=== PATIENT | female | born 1970 | race Hispanic/Latino ===

== ENCOUNTER 2021-04-13 09:01 | Emergency (ER) | payer BC, SELFPAY ==
[2021-04-13 09:46] LABS: Absolute Lymphocytes (CBC) 1.2 K/uL (0.7-4.9); Basophils % 0.2 % (0-1.3); Hematocrit 43.3 % (36.0-45.0); Lymphocytes % 7.4 % (15.3-44.8); MPV 8.5 fL (7.6-11.3); RBC Red Blood Cell Count 4.75 M/uL (3.86-4.86)
--- NOTE | 2021-04-13 10:14 | RAD REPORT ---
EXAM DESCRIPTION: RAD - Chest Single View - 04/13/2021 9:56 am CLINICAL HISTORY: DYSPNEA Chest pain. COMPARISON: Chest Pa And Lat (2 Views) dated 11/21/2018 FINDINGS: Portable technique limits examination quality. Mild to moderate bilateral interstitial lung opacities are noted which may represent pulmonary edema or infection/ pneumonia. The heart is upper limit of normal in size. No displaced fractures.
[2021-04-13 10:43] LABS: Protime INR 1.11
[2021-04-13 11:25] LABS: ALT/SGPT 132 U/L (12-78); AST/SGOT 79 U/L (15-37); Albumin 3.2 g/dL (3.4-5.0); Alkaline Phosphatase 125 U/L (45-117); BUN Blood Urea Nitrogen 9 mg/dL (7-18); Bicarbonate 25 mmol/L (21-32); Bilirubin Direct 0.2 mg/dL (0-0.2); Bilirubin Total 0.4 mg/dL (0.2-1.0); C-Reactive Protein 5.98 mg/L (<3.00); Ferritin 206.3 ng/mL (8-388); Glucose Level 106 mg/dL (74-106); Lipase 242 U/L (73-393); Potassium 3.7 mmol/L (3.5-5.1); Protein, Total 8.1 g/dL (6.4-8.2); Sodium Level 140 mmol/L (136-145); Troponin (Emerg Dept Use Only) < 0.02 ng/mL (0.0-0.045)
--- NOTE | 2021-04-13 12:02 | RAD REPORT ---
EXAM DESCRIPTION: CT - Chest For Pe Angio - 04/13/2021 11:43 am CLINICAL HISTORY: Chest pain. DYSPNEA COMPARISON: Chest Single View dated 04/13/2021 TECHNIQUE: CT angiogram of the pulmonary arteries was performed with MIP. All CT scans are performed using dose optimization technique as appropriate and may include automated exposure control or mA/KV adjustment according to patient size. FINDINGS: No evidence of pulmonary thromboembolism. No acute aortic finding demonstrated. Mild interstitial lung opacities are seen along the periphery of both lungs are in greatest in the lo wer lobes. No significant pericardial or pleural fluid. No concerning bony finding. IMPRESSION: No evidence of pulmonary thromboembolism. Interstitial lung opacities are seen along the periphery of both lungs and greatest in the lower lobe s. This pattern is most compatible with underlying COVID-19 infection.
--- NOTE | 2021-04-13 12:17 | EDPHYS ---
Physician Documentation [facility] Name: Billie Turcios Age: 50 yrs Sex: Female : 1970 Arrival Date: 04/13/2021 Time: 09:03 Bed 13 Private MD: ED Physician Jonathan Mcbride HPI: 04/13 10:20 This 50 yrs old Female presents to ER via Ambulatory with complaints of kb Shortness Of Breath. 10:20 The patient has shortness of breath at rest. Onset: The symptoms/episode began/occurred kb 1 week(s) ago. Duration: The symptoms are continuous. The patient's shortness of breath is aggravated by exertion. Associated signs and symptoms: Pertinent positives: chest pain, non-productive cough. Severity of symptoms: At their worst the symptoms were moderate in the emergency department the symptoms are unchanged. The patient has not experienced similar symptoms in the past. The patient has been recently seen by a physician:. Pt reports she was diagnosed with covid a week ago, completed a course of zithromax and steroids, but still having shortness of breath. 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 - Social history:: Smoking status: Patient denies any tobacco usage or history of. ROS: 10:19 Abdomen/GI: Negative for abdominal pain, nausea, vomiting, diarrhea, and constipation. kb 10:19 Constitutional: Positive for malaise. 10:19 Cardiovascular: Positive for chest pain, Negative for edema, orthopnea, palpitations, paroxysmal nocturnal dyspnea. 10:19 Respiratory: Positive for cough, shortness of breath. 10:19 All other systems are negative. Exam: 09:57 ECG was reviewed by the Attending Physician. kb 10:19 Constitutional: This is a well developed, well nourished patient who is awake, alert, kb and in no acute distress. Head/Face: Normocephalic, atraumatic. ENT: Moist Mucous membranes Cardiovascular: Regular rate and rhythm with a normal S1 and S2. No gallops, murmurs, or rubs. No pulse deficits. Abdomen/GI: Soft, non-tender. No distention Skin: Warm, dry with normal turgor. Normal color. MS/ Extremity: Pulses equal, no cyanosis. Neurovascular intact. Full, normal range of motion. Neuro: Awake and alert, GCS 15, oriented to person, place, time, and situation. Moves all extremities. Normal gait. Psych: Awake, alert, with orientation to person, place and time. Behavior, mood, and affect are within normal limits. 10:19 Respiratory: the patient does not display signs of respiratory distress, Respirations: normal, Breath sounds: wheezing: inspiratory that is mild, is heard in the left upper lobe. Vital Signs: 09:13 BP 126 / 82; Pulse 89; Resp 18; Temp 98.4; Pulse Ox 98% on R/A; Weight 61.69 kg; Height iw 5 ft. 0 in. (152.40 cm); 12:00 BP 128 / 86; Pulse 90; Resp 20; Pulse Ox 96% on R/A; tr6 09:13 Body Mass Index 26.56 (61.69 kg, 152.40 cm) iw MDM: 09:15 Patient medically screened. kb 10:20 Data reviewed: vital signs, nurses notes. Data interpreted: Pulse oximetry: on room air kb is 98 %. Interpretation: normal. 12:16 Counseling: I had a detailed discussion with the patient and/or guardian regarding: the kb historical points, exam findings, and any diagnostic results supporting the discharge/admit diagnosis, lab results, radiology results, the need for outpatient follow up, a family practitioner, to return to the emergency department if symptoms worsen or persist or if there are any questions or concerns that arise at home. 04/13 09:24 Order name: Troponin (emerg Dept Use Only) kb 04/13 09:24 Order name: BMP kb 04/13 09:24 Order name: C-Reactive Protein; Complete Time: 11:29 kb 04/13 09:24 Order name: CBC with Diff; Complete Time: 09:56 kb 04/13 09:24 Order name: D-Dimer; Complete Time: 10:55 kb 04/13 09:24 Order name: Ferritin; Complete Time: 11:29 kb 04/13 09:24 Order name: LFT's; Complete Time: 11:29 kb 04/13 09:24 Order name: Lipase; Complete Time: 11:29 kb 04/13 09:24 Order name: PT-INR; Complete Time: 10:55 kb 04/13 09:24 Order name: Ptt, Activated; Complete Time: 10:55 kb 04/13 09:24 Order name: CXR XRAY; Complete Time: 10:16 kb 04/13 09:24 Order name: Troponin (Emerg Dept Use Only); Complete Time: 11:29 EDMS 04/13 09:24 Order name: Basic Metabolic Panel; Complete Time: 11:29 EDMS 04/13 09:24 Order name: EKG; Complete Time: 09:25 kb 04/13 09:24 Order name: Cardiac monitoring; Complete Time: 11:04 kb 04/13 09:24 Order name: Droplet/Contact Precautions; Complete Time: 11:04 kb 04/13 09:24 Order name: EKG - Nurse/Tech; Complete Time: 11:06 kb 04/13 09:24 Order name: IV Start; Complete Time: 11:06 kb 04/13 09:24 Order name: Labs collected and sent; Complete Time: 11:06 kb 04/13 09:24 Order name: O2 Per Protocol; Complete Time: 11:07 kb 04/13 09:24 Order name: O2 Sat Monitoring; Complete Time: 11:07 kb 04/13 09:53 Order name: Labs - recollect needed: recollect cbc, c7; Complete Time: 11:03 bd 04/13 10:53 Order name: CT Chest For PE Angio; Complete Time: 12:03 kb EC:57 Rate is 75 beats/min. Rhythm is regular. QRS [place] is Normal. [place] interval is normal at kb 126 msec. QRS interval is normal at 62 msec. QT interval is normal at 384 msec. Administered Medications: No medications were administered Disposition: 04/14 07:08 Co-signature as Attending Physician, Jonathan Mcbride MD I agree with the assessment and dudley plan of care. Disposition: 04/13/21 12:16 Discharged to Home. Impression: Coronavirus infection, unspecified. - Condition is Stable. - Discharge Instructions: Viral Respiratory Infection, [id number], COVID-19. - Prescriptions for Albuterol Sulfate 90 mcg/actuation - inhale 1-2 puff by INHALATION route every 4-6 hours; 1 Inhaler. - Medication Reconciliation Form, Thank You Letter, Antibiotic Education, Prescription Opioid Use form. - Follow up: Emergency Department; When: As needed; Reason: Worsening of condition. Follow up: Private Physician; When: 2 - 3 days; Reason: Recheck today's complaints, Continuance of care, Re-evaluation by your physician. Signatures: Dispatcher [employer] [facility] Mackenzie Graves, COIN WRAPPING MACHINE OPERATOR-C COIN WRAPPING MACHINE OPERATOR-Ckb Danii Melendez Corey, MD MD cha Williams, Irene, RN RN iw Ramnanan, Tiffany, RN RN tr6 Corrections: (The following items were deleted from the chart) 04/13 09:57 09:16 Chest Pa And Lat (2 Views)+RAD.RAD.BRZ ordered. [facility] 12:33 12:16 04/13/2021 12:16 Discharged to Home. Impression: Coronavirus infection, tr6 unspecified. Condition is Stable. Forms are Medication Reconciliation Form, Thank You Letter, Antibiotic Education, Prescription Opioid Use. Follow up: Emergency Department; When: As needed; Reason: Worsening of condition. Follow up: Private Physician; When: 2 - 3 days; Reason: Recheck today's complaints, Continuance of care, Re-evaluation by your physician. kb
--- NOTE | 2021-04-13 12:17 | ER ---
Nurse's Notes [facility] Name: Billie Turcios Age: 50 yrs Sex: Female : 1970 Arrival Date: 04/13/2021 Time: 09:03 Bed 13 Private MD: Diagnosis: Coronavirus infection, unspecified Presentation: 04/13 09:13 Chief complaint: Patient states: SOB since 6-7, COVID+, finished Zpack and prednisone. Coronavirus screen: Client presents with at least one sign or symptom that may indicate coronavirus-19. Client reports previous positive COVID test result. Ebola Screen: Patient negative for fever greater than or equal to 101.5 degrees Fahrenheit, and additional compatible Ebola Virus Disease symptoms Patient denies exposure to infectious person. Patient denies travel to an Ebola-affected area in the 21 days before illness onset. No symptoms or risks identified at this time. Initial Sepsis Screen: Does the patient meet any 2 criteria? No. Patient's initial sepsis screen is negative. Does the patient have a suspected source of infection? No. Patient's initial sepsis screen is negative. Risk Assessment: Do you want to hurt yourself or someone else? Patient reports no desire to harm self or others. Onset of symptoms was April 06, 2021. 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 - Social history:: Smoking status: Patient denies any tobacco usage or history of. Screenin:31 Abuse screen: Denies threats or abuse. Denies injuries from another. Nutritional tr6 screening: No deficits noted. Tuberculosis screening: No symptoms or risk factors identified. Fall Risk None identified. Assessment: 09:40 General: Appears uncomfortable, Behavior is calm, cooperative, appropriate for age. tr6 Pain: Complains of pain in cp with inspiration. Neuro: No deficits noted. Cardiovascular: Rhythm is regular. Respiratory: Airway is patent Respiratory effort is even, labored, Breath sounds are diminished. GI: No deficits noted. : No deficits noted. EENT: No deficits noted. Derm: No deficits noted. Musculoskeletal: No deficits noted. Vital Signs: 09:13 BP 126 / 82; Pulse 89; Resp 18; Temp 98.4; Pulse Ox 98% on R/A; Weight 61.69 kg; Height iw 5 ft. 0 in. (152.40 cm); 12:00 BP 128 / 86; Pulse 90; Resp 20; Pulse Ox 96% on R/A; tr6 09:13 Body Mass Index 26.56 (61.69 kg, 152.40 cm) ED Course: 09:03 Patient arrived in ED. ds1 09:12 Mackenzie Graves FNP-C is [facility]. kb 09:12 Jonathan Mcbride MD is Attending Physician. kb 09:14 Triage completed. iw 09:15 Arm band placed on. iw 09:25 Swapna Leija, MATTHEW is Primary Nurse. tr6 09:42 Inserted saline lock: 20 gauge in right antecubital area, using aseptic technique. mt Blood collected. 09:56 CXR XRAY In Process Unspecified. EDMS 11:43 CT Chest For PE Angio In Process Unspecified. EDMS 12:31 Patient has correct armband on for positive identification. Bed in low position. Call tr6 light in reach. Side rails up X 1. 12:31 IV discontinued, intact, bleeding controlled, No redness/swelling at site. Pressure tr6 dressing applied. Administered Medications: No medications were administered Outcome: 12:16 Discharge ordered by . kb 12:31 Discharged to home ambulatory. tr6 12:31 Condition: stable 12:31 Discharge instructions given to patient, Instructed on discharge instructions, follow up and referral plans. medication usage, safety practices, Demonstrated understanding of instructions, follow-up care, medications, Prescriptions given X 1. 12:33 Patient left the ED. tr6 Signatures: Dispatcher [employer] EDMS Mackenzie Graves FNP-C FNP-Ckb Sanford, Demi ds1 Lakshmi Galvez, RN MATTHEW Raymond [facility] Swapna Leija RN RN tr6
[2021-04-13 12:37] VITALS: TEMP 98.4
[2021-04-13 12:39] VITALS: BP 128/86; O2SAT 96
== END 2021-04-13 12:33 | disposition home or self-care (01) ==
LOC: ER 09:01
DX: U07.1 COVID-19 (principal); Z88.0 Allergy status to penicillin
CPT/HCPCS: 36415; 71045; 71275; 80048; 80076; 82728; 83690; 84484; 85025; 85379; 85610; 85730; 86140; 93005; 99284; Q9967

== ENCOUNTER 2021-06-23 02:08 | Observation (INO) | payer SELFPAY ==
--- OUTSIDE RECORDS SUMMARY | 2021-06-23 02:11 | XMS REPORT | Continuity of Care Document ---
:1970 Author Organization [facility] t Address [address] [place] [address] Dr. Barker [address] [place] [id number] Care Team Providers Name Role Phone Unavailable Unavailable Unavailable Payers Payer Name Policy Type Policy Number Effective Date Expiration Date S ource Problems This patient has no known problems. Allergies, Adverse Reactions, Alerts This patient has no known allergies or adverse reactions. Medications This patient has no known medications. Procedures This patient has no known procedures. Results This patient has no known results.
[2021-06-23 03:02] LABS: Basophils % 0.4 % (0-1.3); Hematocrit 39.2 % (36.0-45.0); Lymphocytes % 33.3 % (15.3-44.8); MPV 7.8 fL (7.6-11.3); RBC Red Blood Cell Count 4.27 M/uL (3.86-4.86)
[2021-06-23 04:06] LABS: Albumin 3.8 g/dL (3.4-5.0); Bilirubin Direct 0.1 mg/dL (0-0.2); Bilirubin Total 0.3 mg/dL (0.2-1.0); Potassium 3.8 mmol/L (3.5-5.1); Protein, Total 8.2 g/dL (6.4-8.2)
--- NOTE | 2021-06-23 04:42 | ER ---
Nurse's Notes [facility] Name: Billie Turcios Age: 50 yrs Sex: Female : 1970 Arrival Date: 06/23/2021 Time: 02:09 Bed 17 Private MD: Diagnosis: Acute cholecystitis Presentation: 06/23 02:37 Chief complaint: Patient states: epigastric pain that radiates into into back started em at 9 pm, hx of gallstones, denies N/V or fever. Coronavirus screen: Client denies travel out of the [place] in the last 14 days. Ebola Screen: Patient negative for fever greater than or equal to 101.5 degrees Fahrenheit, and additional compatible Ebola Virus Disease symptoms Patient denies exposure to infectious person. Patient denies travel to an Ebola-affected area in the 21 days before illness onset. No symptoms or risks identified at this time. Initial Sepsis Screen: Does the patient meet any 2 criteria? No. Patient's initial sepsis screen is negative. Does the patient have a suspected source of infection? No. Patient's initial sepsis screen is negative. Risk Assessment: Do you want to hurt yourself or someone else? Patient reports no desire to harm self or others. Onset of symptoms was June 23, 2021. 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 - Social history:: Smoking status: Patient denies any tobacco usage or history of. Screenin:15 Abuse screen: Denies threats or abuse. Denies injuries from another. Nutritional hb screening: No deficits noted. Tuberculosis screening: No symptoms or risk factors identified. Fall Risk None identified. Assessment: 04:11 General: Appears uncomfortable, Behavior is calm, cooperative. Pain: Complains of pain ch4 in abdomen Pain currently is 8 out of 10 on a pain scale. Pain began 2100. Neuro: No deficits noted. Cardiovascular: No deficits noted. Respiratory: No deficits noted. GI: Reports upper abdominal pain, Patient currently denies diarrhea, nausea, vomiting. : No deficits noted. EENT: No deficits noted. Derm: No deficits noted. Musculoskeletal: No deficits noted. 07:43 Reassessment: Patient appears in no apparent distress at this time. Patient and/or hb family updated on plan of care and expected duration. Pain level reassessed. Patient is alert, oriented x 3, equal unlabored respirations, skin warm/dry/pink. Vital Signs: 02:37 BP 168 / 96; Pulse 81; Resp 18; Temp 98.7; Pulse Ox 99% on R/A; Weight 61.69 kg; Height em 5 ft. 0 in. (152.40 cm); Pain 7/10; 04:12 BP 159 / 86; Pulse 70; Resp 17; Temp 98.6; Pulse Ox 100% on R/A; ch4 07:43 BP 159 / 86; Pulse 65; Resp 15; Pulse Ox 98% on R/A; hb 02:37 Body Mass Index 26.56 (61.69 kg, 152.40 cm) em ED Course: 02:09 Patient arrived in ED. wm 02:40 Triage completed. em 02:40 Arm band placed on. em 02:50 Inserted saline lock: 22 gauge in right antecubital area, using aseptic technique. ds4 Blood collected. 03:47 US Abdomen Limited In Process Unspecified. EDMS 03:56 Jose Antonio Vasquez MD is Attending Physician. tw4 04:05 Yasmeen Mejia, MATTHEW is Primary Nurse. ch4 04:41 Steve Moore MD is Hospitalizing Provider. tw4 07:15 No provider procedures requiring assistance completed. hb 08:30 Patient admitted, IV remains in place. hb 09:14 Patient has correct armband on for positive identification. hb Administered Medications: 05:29 Drug: Zofran (Ondansetron) 4 mg Route: IVP; Site: right antecubital; ch4 05:29 Drug: morphine 4 mg Route: IVP; Site: right antecubital; ch4 Outcome: 04:42 Decision to Hospitalize by Provider. tw4 08:30 Admitted to ER Hold. Please see [facility] for further documentation. hb 08:30 Condition: stable 08:30 Instructed on the need for admit, Demonstrated understanding of instructions. 13:44 Patient left the ED. hb Signatures: Dispatcher [employer] Terry Platt, RN RN Saul Perez ds4 Kristen Bland RN RN Jose Antonio Vasquez MD MD tw4 Hilaria Jurado Yasmeen Mejia RN RN ch4 Corrections: (The following items were deleted from the chart) 05:45 05:37 CORONAVIRUS+ drawn and sent. ch4 EDMS
[2021-06-23] MEDS ORDERED: ONDANSETRON 4 MG/2 ML VIAL ONE (05:06)
[2021-06-23] MEDS ORDERED: MORPHINE 4 MG/ML SYR ONE (05:06)
--- NOTE | 2021-06-23 07:37 | EKG ---
Test Date: 2021-06-23 Test Time: 02:45:21 Canine Deputy: DAISY MEASUREMENT RESULTS: Intervals: Rate: 88 PA: 156 QRSD: 76 QT: 366 QTc: 442 [place]: P: 66 PA: 156 QRS: 25 T: 38 INTERPRETIVE STATEMENTS: Normal sinus rhythm Nonspecific T wave abnormality Abnormal ECG Compared to ECG 04/13/2021 09:46:44 T-wave abnormality now present ST (T wave) deviation no longer present Electronically Signed On 06-23-21 07:36:09 CDT by Adalberto Blake
--- NOTE | 2021-06-23 08:18 | RAD REPORT ---
EXAM DESCRIPTION: US - Abdomen Exam Limited - 06/23/2021 3:47 am CLINICAL HISTORY: Abdominal pain. COMPARISON: 2016 FINDINGS: Stone within the gallbladder neck. Small amount of fluid surrounds the gallbladder. Border line gallbladder wall thickening The biliary tree is normal caliber. IMPRESSION: Cholelithiasis. Small amount of fluid surrounds the gallbladder. This may indicate cholecystitis and should be correl ated clinically
[2021-06-23 09:28] VITALS: BMI 26.4
--- NOTE | 2021-06-23 13:44 | EDPHYS ---
Physician Documentation [facility] Name: Billie Turcios Age: 50 yrs Sex: Female : 1970 Arrival Date: 06/23/2021 Time: 02:09 Bed 17 Private MD: ED Physician Jose Antonio Vasquez HPI: 06/23 04:42 This 50 yrs old Female presents to ER via Ambulatory with complaints of tw4 Epigastric Pain. 04:42 The patient presents with abdominal pain in the epigastric area. Onset: The tw4 symptoms/episode began/occurred today. The symptoms radiate to right back. Associated signs and symptoms: Pertinent positives: nausea and vomiting. The symptoms are described as sharp. Modifying factors: The symptoms are alleviated by nothing, the symptoms are aggravated by nothing. The patient has not experienced similar symptoms in the past. 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 - Social history:: Smoking status: Patient denies any tobacco usage or history of. ROS: 04:42 Constitutional: Negative for fever, chills, and weight loss, Cardiovascular: Negative tw4 for chest pain, palpitations, and edema, Respiratory: Negative for shortness of breath, cough, wheezing, and pleuritic chest pain, Back: Negative for injury and pain, MS/Extremity: Negative for injury and deformity, Skin: Negative for injury, rash, and discoloration, Neuro: Negative for headache, weakness, numbness, tingling, and seizure. 04:42 Abdomen/GI: Positive for abdominal pain, nausea and vomiting, nausea, vomiting, and diarrhea, vomiting. Exam: 04:42 Constitutional: This is a well developed, well nourished patient who is awake, alert, tw4 and in no acute distress. Head/Face: Normocephalic, atraumatic. Chest/axilla: Normal chest wall appearance and motion. Nontender with no deformity. No lesions are appreciated. Cardiovascular: Regular rate and rhythm with a normal S1 and S2. No gallops, murmurs, or rubs. Normal PMI, no JVD. No pulse deficits. Respiratory: Lungs have equal breath sounds bilaterally, clear to auscultation and percussion. No rales, rhonchi or wheezes noted. No increased work of breathing, no retractions or nasal flaring. Back: No spinal tenderness. No costovertebral tenderness. Full range of motion. MS/ Extremity: Pulses equal, no cyanosis. Neurovascular intact. Full, normal range of motion. Neuro: Awake and alert, GCS 15, oriented to person, place, time, and situation. Cranial nerves II-XII grossly intact. Motor strength 5/5 in all extremities. Sensory grossly intact. Cerebellar exam normal. Normal gait. 04:42 Abdomen/GI: Inspection: abdomen appears normal, Bowel sounds: normal, Palpation: moderate abdominal tenderness, in the right upper quadrant. Vital Signs: 02:37 BP 168 / 96; Pulse 81; Resp 18; Temp 98.7; Pulse Ox 99% on R/A; Weight 61.69 kg; Height em 5 ft. 0 in. (152.40 cm); Pain 7/10; 04:12 BP 159 / 86; Pulse 70; Resp 17; Temp 98.6; Pulse Ox 100% on R/A; ch4 07:43 BP 159 / 86; Pulse 65; Resp 15; Pulse Ox 98% on R/A; hb 02:37 Body Mass Index 26.56 (61.69 kg, 152.40 cm) em MDM: 04:42 Patient medically screened. tw4 06/23 02:41 Order name: Basic Metabolic Panel em 06/23 02:41 Order name: CBC with Diff em 06/23 02:41 Order name: Hepatic Function em 06/23 02:41 Order name: Lipase em 06/23 06:40 Order name: SARS-COV-2 RT PCR EDDC 06/23 02:41 Order name: IV Saline Lock; Complete Time: 03:08 em 06/23 02:41 Order name: Labs collected and sent; Complete Time: 03:08 em 06/23 02:41 Order name: EKG - Nurse/Tech; Complete Time: 02:44 em 06/23 02:42 Order name: US Abdomen Limited em 06/23 06:56 Order name: EKG Electrocardiogram EDDC EC:42 Rate is 88 beats/min. Rhythm is regular. QRS [place] is Normal. CT interval is normal. QRS tw4 interval is normal. QT interval is normal. No Q waves. T waves are Normal. Clinical impression: NSR w/ Non-specific ST/T Changes. Interpreted by me. Reviewed by me. Administered Medications: 05:29 Drug: Zofran (Ondansetron) 4 mg Route: IVP; Site: right antecubital; ch4 05:29 Drug: morphine 4 mg Route: IVP; Site: right antecubital; ch4 Disposition Summary: 06/23/21 04:42 Hospitalization Ordered Hospitalization Status: Inpatient Admission tw4 Provider: Steve Moore tw4 Condition: Stable tw4 Problem: new tw4 Symptoms: have improved tw4 Bed/Room Type: Standard tw4 Location: [facility](06/23/21 13:28) Room Assignment: [facility]-(06/23/21 13:28) Diagnosis - Acute cholecystitis tw4 Forms: - Medication Reconciliation Form tw4 - SBAR form tw4 Signatures: Dispatcher [employer] EDMS Danii Melendez Edgar, MATTHEW CASTRO Radha Moeller RN RN ss Wadley, Terrence, MD MD tw4 Yasmeen Mejia RN RN ch4 Corrections: (The following items were deleted from the chart) 05:45 05:34 CORONAVIRUS+MR.LAB.BRZ ordered. EDDC EDMS 07:58 04:42 Telemetry/MedSurg (Inpatient) tw4 ss 07:58 04:42 tw4 ss 13:28 07:58 BR ER HOLD ss bd 13:28 07:58 ERHOLD- ss bd
[2021-06-23] MEDS ORDERED: Ringers Lactate 1,000 ML IV ONE (14:09)
--- NOTE | 2021-06-23 14:26 | P.HP ---
Date of Service: 06/23/21 PC: This 50-year-old female presented to the emergency room with severe right upper quadrant abdominal pain for diagnosis and treatment. HPC: Patient been experiencing right upper quadrant abdominal pain late last night. She has had previous episodes similar to this. They seem to go straight through to her back on the right between her shoulder blades. It was unrelenting in nature. PSHx: 8 para 8 PMHx: Negative Social Hx: Allergic to penicillin Sys R: Patient apparently about 2 months ago. Since then has been getting her strength back and is almost at normal levels. Has had indigestion, chronic belching and gas over the last few years. Had one prior episodes in the past but never got it checked out. Denies any urinary complaints at this time O/E: Awake alert comfortable at the moment HEENT: Nonicteric Chest: Air entry is equal bilaterally Abd: Mild right upper quadrant tenderness Hathaway: Intact Data: Ultrasound demonstrates stone stuck in the neck of the gallbladder Impression: Cholecystitis with cholelithiasis, biliary colic Plan: I will take her to the operating room for laparoscopic possible open cholecystectomy with a cholangiogram. The risks of this procedure have been discussed. The possibility of bleeding, infection, injury to bile ducts blood vessels and intestines has been described. The possible need for further surgeries and procedures was discussed. She understands and wants to proceed.
[2021-06-23] MEDS ORDERED: propofoL 200 MG/20 ML VIAL IV ONE (14:39)
[2021-06-23] MEDS ORDERED: FENTANYL CITR 100 MCG/2 ML ONE ×2 (14:39→15:45)
[2021-06-23] MEDS ORDERED: MIDAZOLAM HCL 2 MG/2 ML INJ ONE (14:39)
[2021-06-23] MEDS ORDERED: LIDOCAINE 1% MPF 5 ML VIAL ONE (14:39)
[2021-06-23] MEDS ORDERED: ROCURONIUM 50 MG/5 ML VIAL IV ONE (14:40)
[2021-06-23] MEDS ORDERED: GLYCOPYRROLATE 0.2 MG/ML SYR ONE (15:47)
[2021-06-23] MEDS ORDERED: NEOSTIGMINE 1 MG/ML -5 ML ONE (15:47)
--- NOTE | 2021-06-23 15:47 | P.OP ---
Preoperative diagnosis: Acute on chronic cholecystitis with cholelithiasis, biliary colic Postoperative diagnosis: Same Primary procedure: Laparoscopic cholecystectomy Secondary procedure: Cholangiogram Other procedure(s): Aung block Anesthesia: General Estimated blood loss: Less than 10 cc Findings: Acute on chronic cholecystitis cholelithiasis Operative Technique: The patient was brought to the operating room and placed supine on the table. After the induction of adequate general endotracheal anesthesia, there the abdomen was prepped with a DuraPrep solution, and the patient was draped in usual aseptic manner. A subumbilical incision was made. This was brought down through the skin and subcutaneous tissue. The Visiport was now used to enter the peritoneal cavity and created pneumoperitoneum to approximately 12 mmHg. Under direct vision a 5 mm trocar was placed in the upper midline, and 2 other 5 mm trochars on the right lateral side of the abdomen. With the patient placed in reverse Trendelenburg and the table turned towards the left we were able to visualize the right upper quadrant. We could see a markedly distended gallbladder showing signs of acute cholecystitis as well as distention. It was necessary to aspirate the contents of the gallbladder due to the amount of distention allowing us to then place a grasper on the fundus. Applying lateral traction with a grasper on the fundus, we were able to detach serosal adhesions of the omentum that were along the body down towards Damico's pouch. Damico's pouch having been cleared, now allowed us to place a grasper on the structure. Gentle dissection allowed us to expose the cystic duct and artery. Having obtained a critical view, a clip was placed between the gallbladder and the cystic duct. An opening was made into the cystic duct through which we were able to obtain a cholangiogram. The cholangiogram showed good flow of contrast into the duodenum, no filling defects were noted. The catheter was then removed. Clips were placed on the distal portion of the cystic duct. The cystic artery was identified, clipped and divided in the usual fashion. The gallbladder was now dissected free from the liver bed, placed into an Endo Catch, and brought out through the umbilical trocar site. At this point were able to inspect the right upper quadrant. We could see that we had adequate hemostasis. The irrigating fluid was aspirated from the peritoneal cavity. It was then irrigated with a copious amount of a saline solution. At this point attention was turned back towards the umbilicus. With a 5 mm camera in the upper trocar we were able to approximate the fascial defect using the Endo Close and 2 absorbable sutures. A good airtight and watertight seal having been obtained, the pneumoperitoneum was now collapsed after having performed a AUNG block of the anterior abdominal wall using 0.25% Marcaine. The trochars were now removed, and cj applied to the skin. At the end of the procedure the patient was in a stable condition when wheeled to the recovery room. Needle sponge instrument count were correct. No drains were placed. Complications: None Transferred to: Recovery Room Condition: Good
[2021-06-23] MEDS ORDERED: ONDANSETRON 4 MG/2 ML VIAL IV PRN (15:52)
[2021-06-23] MEDS: HYDROMORPHONE HCL 1 MG/ML INJ ONE ×2 (15:57→16:02)
[2021-06-23] MEDS ORDERED: PROMETHAZINE INJ 25 MG/ML AMP ONE (16:09)
[2021-06-23 16:15] VITALS: O2SAT 95
[2021-06-23] MEDS ORDERED: SUCCINYLCHOLINE 20 MG/ML (10 ML) IV ONE (16:19)
[2021-06-23] MEDS ORDERED: HYDROMORPHONE HCL 1 MG/ML INJ ONE (16:30)
[2021-06-23] MEDS: Ringers Lactate 1,000 ML IV SCH (16:51)
[2021-06-23] MEDS: MORPHINE 4 MG/ML SYR IV PRN ×2 (18:07→23:05)
--- NOTE | 2021-06-23 19:36 | RAD REPORT ---
EXAM DESCRIPTION: RAD - Cholangiogram Oper-Xray Or - 06/23/2021 4:09 pm CLINICAL HISTORY: [facility] COMPARISON: Abdomen Exam Limited dated 06/23/2021 FINDINGS: Intraoperative cholangiogram showing opacification of the common bile duct. No filling def ects are identified to suggest choledocholithiasis. Contrast can be seen within the small bowel. The caliber of the common bile duct and hepatic duct are normal. IMPRESSION: Intraoperative cholangiogram without evidence of biliary ductal dilatation or choledocho lithiasis.
[2021-06-23] MEDS: HYDROCODONE/APAP 7.5/325 MG TAB PO PRN (20:45)
[2021-06-24] MEDS: Ringers Lactate 1,000 ML IV SCH (01:54)
[2021-06-24] MEDS: HYDROCODONE/APAP 7.5/325 MG TAB PO PRN ×3 (03:35→13:40)
[2021-06-24] MEDS: MORPHINE 4 MG/ML SYR IV PRN ×2 (04:54→10:07)
[2021-06-24 12:03] VITALS: BP 133/63; TEMP 98.9
== END 2021-06-24 14:10 | disposition home or self-care (01) ==
LOC: ER 02:08 → ERHOLD 08:02 → 2ND-WC 14:25
PROVIDERS: ADMIT Surgery; ATTEND Surgery
PROC: BF00YZZ Plain Radiography of Bile Ducts using Other Contrast (ICD-10-PCS; 2021-06-23)
PROC: 0FT44ZZ Resection of Gallbladder, Percutaneous Endoscopic Approach (ICD-10-PCS; principal; 2021-06-23 12:30)
DX: K80.12 Calculus of gallbladder with acute and chronic cholecystitis without obstruction (principal); Z88.0 Allergy status to penicillin; Z20.822 Contact with and (suspected) exposure to COVID-19
CPT/HCPCS: 36415; 74300; 76705; 80048; 80076; 83690; 85025; 88304; 93005; 94010; 96374; 96375; 99285; G0378; J0330; J1170; J2250; J2405; J2550; J2704; J2710; J3010; J7120; U0003